=== PATIENT | male | born 2000 | race Hispanic/Latino ===

== ENCOUNTER 2024-02-19 17:47 | Emergency (ER) | payer OTHER ==
[~2024-02-19] VITALS: Ht 162.6 cm; Wt 106.6 kg
[2024-02-19 17:49] VITALS: BP 148/92; PULSE 63; RESP 14
[2024-02-19] MEDS ORDERED: CEPH500B PO (19:30)
== END 2024-02-19 20:09 | disposition home or self-care (01) ==
LOC: EDH 17:47
DX: S90.414A Abrasion, right lesser toe(s), initial encounter (principal); Z88.1 Allergy status to other antibiotic agents; W26.9XXA Contact with unspecified sharp object(s), initial encounter; Y93.89 Activity, other specified; Y92.89 Other specified places as the place of occurrence of the external cause; Y99.8 Other external cause status
CPT/HCPCS: 99282